=== PATIENT | female | born 1985 | race Caucasian/White ===

== ENCOUNTER 2016-06-16 17:21 | Inpatient (IN) | payer OTHER ==
[~2016-06-16] VITALS: Ht 152.4 cm; Wt 90.3 kg
[~2016-06-16 17:21] MED LIST: AMOXICILLIN875 M1 PO; AZITHROMYCIN500 M3 PO; CYCLOBENZAPRINE10 M1 PO; LEVOTHYROXINE100 MC1 PO; VITAFOL ULTRA1 EACH PO
[2016-06-17 01:32] LABS: ABSOLUTE BASOPHIL COUNT 0 /CUMM (0.0-0.2); ABSOLUTE EOSINOPHIL COUNT 0 /CUMM (0.0-0.7); ABSOLUTE GRANULOCYTE CT 9.3 /CUMM (1.4-6.5); ABSOLUTE LYMPH COUNT 2.6 /CUMM (1.2-3.4); ABSOLUTE MONOCYTE COUNT 0.6 /CUMM (0.10-0.60); BASOPHIL % 0.3 % (0.0-2.0); EOSINOPHIL % 0.3 % (0-5); GRANULOCYTE % 73.8 % (42.2-75.2); HEMATOCRIT 36.6 % (37-47); MEAN CORPUSCULAR HGB 28.9 PG (27.0-31.0); MEAN CORPUSCULAR HGB CONC 33.5 G/DL (33.0-37.0); MEAN CORPUSCULAR VOLUME 86.2 FL (81.0-99.0); MEAN PLATELET VOLUME 9.5 FL (7.4-10.4); PLATELET COUNT 197 /CUMM (130-400); RBC DISTRIBUTION WIDTH 13.7 % (11.5-14.5); RED BLOOD CELL CT 4.24 /CUMM (4.20-5.40); WHITE BLOOD CELL COUNT 12.6 /CUMM (4.8-10.8)
--- NOTE | 2016-06-17 02:01 | History & Physical ---
General Information and HPI MD Statement: I have seen and personally examined NAVEEN CUMMINS and documented this H&P. The patient is a 31 year old female at [40] weeks and [3] days gestation who presented with a chief complaint of [CTXS]. Source of Information: patient Exam Limitations: no limitations History of Present Illness: 31yo, 40 3/7wks, she was sent from office due to painful ctxs, she was observed at [facility], no cervical change for 3 hours, she was admitted for observation, she was given morphine and vistril for theraputic rest. she slept, then woke up with ctxs, she was 8cm dialted. request epidural. 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 : 4 Para: 1 Last Menstrual Period: 09/07/2015 Estimated Delivery Date: 06/13/2016 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: 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-contributory Past Pregnancies Past Pregnancies: Date of Delivery: 09/05/2013 Gestational Age: 39wks Weight: 6lb3oz Type of Delivery: vaginal Anesthesia: epidural Complications: none Medical History Blood Transfusion Hx: No Neurological: NONE EENT: NONE Cardiovascular: NONE Respiratory: NONE Gastrointestinal: NONE Hepatic: NONE Renal: NONE Musculoskeletal: NONE Psychiatric: NONE Endocrine: hypothyroidism Blood Disorders: NONE, LYME DISEASE 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 Home Who Do You Live With? spouse, child Primary Language: Setswana Smoking Status: Former Smoker ETOH Use: denies use Illicit Drug Use: denies illicit drug use Review of Systems Review of Systems Constitutional: Reports: no symptoms. EENTM: Reports: no symptoms. Cardiovascular: Reports: no symptoms. Respiratory: Reports: no symptoms. GI: Reports: no symptoms. Genitourinary: Reports: see HPI. Musculoskeletal: Reports: no symptoms. Skin: Reports: no symptoms. Neurological/Psychological: Reports: no symptoms. Hematologic/Endocrine: Reports: no symptoms. Immunologic/Allergic: Reports: no symptoms. All Other Systems: Reviewed and Negative Date of LMP: 09/07/15 Post Menopausal: No Exam & Diagnostic Data Obstetric Exam Wgt Gained During : 33LBS Pelvimetry: adequate Dilation (cm): 8 Effacement (%): 90 Station: -2 Membranes: SROM Fluid: clear Fundal Height (cm): 39 Multiple Gestation? No Contractions: q3-5 min #1 - FHR Baseline: 110 Category: 1 Estimated Weight: 7LB Presentation: VERTEX Patient for Induction? No Physical Exam: VSS genmeral: NAD abdomen: gravid, soft, nontender ext: DCT (-) Labs Blood Type & Rh: O positive Antibody Screen: negative Hct/Hgb & Platelets #1: 12.5/37.9%,[id number] Hct/Hgb & Platelets #2: 11.5/34.5%,[id number] Rubella: immune VDRL #1: negative VDRL #2: negative HbsAg: negative HIV #1: negative HIV #2 neagtive 1 Hr P Group B Strep: negative Initial Ultrasound: IUP at 10 wks Anatomy Ultrasound: normal Genetic Testing: declined Last 24 Hrs of Labs/Felician[place]: Laboratory Tests 06/17/16 0120: CBC w Diff NO MAN DIFF REQ, RBC 4.24, MCV 86.2, MCH 28.9, RDW 13.7, MPV 9.5, Gran % 73.8, Lymphocytes % 20.8, Monocytes % 4.8, Eosinophils % 0.3, Basophils % 0.3, Absolute Granulocytes 9.3 H, Absolute Lymphocytes 2.6, Absolute Monocytes 0.6, Absolute Eosinophils 0, Absolute Basophils 0, PUBS MCHC 33.5 06/16/16 1800: Urine Color YEL, Urine Clarity CLEAR, Urine pH 6.0, Ur Specific [place] 1.015, Urine Protein NEG, Urine Ketones NEG, Urine Nitrite NEG, Urine Bilirubin NEG, Urine Urobilinogen 0.2, Ur Leukocyte Esterase NEG, Ur Microscopic EXAM NOT REQUIRED, Urine Hemoglobin NEG, Urine Glucose NEG Assessment/Plan Assessment/Plan: 31yo, , 40 3/7wks , labor 1. admit pt, admission labs 2. pain management as needed 3. monitor closely As Ranked By This Provider Problem List: 1. Core Measures/Miscellaneous Venous Thromboembolism VTE Risk Factors: / VTE Contraindications: No Contraindications VTE Prophylaxis Ordered Inpt: Early Ambulation VTE Diagnosis: No Beta Manuel Is Beta Manuel a Home Med? No Antibiotics Is Patient on Antibiotics? No Attending MD Review Statement Attending Statement Attending MD Statement: examined this patient, discussed with family, discussed w/nursing
[2016-06-17 02:32] VITALS: BP 122/73
--- NOTE | 2016-06-17 06:40 | Labor & Delivery Summary ---
Delivery Summary Vaginal Delivery: Vaginal: spontaneous Episiotomy/Lacerations: Type: 1ST DEGREE Repair: 3-0 VICRYL Anesthesia: EPIDURAL Placenta: Placenta: spontanteous, normal, 3 vessel, nuchal cord (x_) (X1) Anesthesia: EPIDURAL Baby's Weight: PENDING Apgars - 1 Min: 8 Apgars - 5 Min: 9
[2016-06-18 08:49] LABS: ABSOLUTE BASOPHIL COUNT 0 /CUMM (0.0-0.2); ABSOLUTE EOSINOPHIL COUNT 0.1 /CUMM (0.0-0.7); ABSOLUTE GRANULOCYTE CT 6.1 /CUMM (1.4-6.5); ABSOLUTE LYMPH COUNT 2.7 /CUMM (1.2-3.4); ABSOLUTE MONOCYTE COUNT 0.4 /CUMM (0.10-0.60); BASOPHIL % 0.3 % (0.0-2.0); EOSINOPHIL % 0.7 % (0-5); GRANULOCYTE % 66.2 % (42.2-75.2); HEMATOCRIT 32.4 % (37-47); MEAN CORPUSCULAR HGB 28.7 PG (27.0-31.0); MEAN CORPUSCULAR VOLUME 87.2 FL (81.0-99.0); PLATELET COUNT 184 /CUMM (130-400); RBC DISTRIBUTION WIDTH 14.3 % (11.5-14.5); RED BLOOD CELL CT 3.72 /CUMM (4.20-5.40); WHITE BLOOD CELL COUNT 9.3 /CUMM (4.8-10.8)
--- NOTE | 2016-06-18 13:51 | PN- OBGYN ---
Surgical Brief Attending Note Brief Attending Note: S: Patient is very pleased with her recent vaginal delivery. Her baby girl is doing well. Patient is breast-feeding without difficulty. She was able to breast-feed her first child for greater than 1 year. 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 Pulse ox 99% room air Abdomen is soft benign no hepatosplenomegaly nontender nondistended Uterus is firm midline 2 fingerbreadths below the umbilicus nontender. Perineum is intact no erythema or drainage or swelling. Average lochia Extremities nontender no swelling negative Homans bilaterally CBC hemoglobin 10.7 hematocrit 32 platelet count normal Stable day #1 routine care. Patient will be ambulating today in the hallway. She is currently doing well with by mouth Motrin. If patient remains afebrile and without clinical signs of any difficulty will likely go home tomorrow Laura Roe MD
[2016-06-19] MEDS ORDERED: IBUPROFEN800 M1 PO (09:36)
[2016-06-19] MEDS ORDERED: LASIX20 M1 PO (10:12)
--- NOTE | 2016-06-19 10:56 | PN- OBGYN ---
Surgical Brief Attending Note Brief Attending Note: No complaints. does note edema of hands and feet. "hands feel numb". Doing well. Ambulating, voiding, tolerating pain and po. +nursing. small to moderate lochia. Denies SOB/CP VSSAF FF@U Ext: no calf tenderness, 3+pedal edema Laboratory Tests 06/18/16 0700: CBC w Diff NO MAN DIFF REQ, RBC 3.72 L, MCV 87.2, MCH 28.7, RDW 14.3, MPV 10.0, Gran % 66.2, Lymphocytes % 29.0, Monocytes % 3.8, Eosinophils % 0.7, Basophils % 0.3, Absolute Granulocytes 6.1, Absolute Lymphocytes 2.7, Absolute Monocytes 0.4 , Absolute Eosinophils 0.1, Absolute Basophils 0, PUBS MCHC 33.0 06/17/16 0120: CBC w Diff NO MAN DIFF REQ, RBC 4.24, MCV 86.2, MCH 28.9, RDW 13.7, MPV 9.5, Gran % 73.8, Lymphocytes % 20.8, Monocytes % 4.8, Eosinophils % 0.3, Basophils % 0.3, Absolute Granulocytes 9.3 H, Absolute Lymphocytes 2.6, Absolute Monocytes 0.6, Absolute Eosinophils 0, Absolute Basophils 0, PUBS MCHC 33.5 06/16/16 1800: Urine Color YEL, Urine Clarity CLEAR, Urine pH 6.0, Ur Specific [place] 1.015, Urine Protein NEG, Urine Ketones NEG, Urine Nitrite NEG, Urine Bilirubin NEG, Urine Urobilinogen 0.2, Ur Leukocyte Esterase NEG, Ur Microscopic EXAM NOT REQUIRED, Urine Hemoglobin NEG, Urine Glucose NEG a/p PPD2. Doing well. Routine pp care. Discharge today . precautions advised. Pedal edema noted. Lasix advised however pt is nursing and with jaundice issues. Will need to either supplement if affecting milk supply or can await to take it until f/u visit Thursday and then take if still advied.
== END 2016-06-19 11:30 | DRG 775 ==
LOC: CBCO 17:21 → GNO 20:00
PROVIDERS: ADMIT Obstetrics & Gynecology
PROC: 0HQ9XZZ Repair Perineum Skin, External Approach (ICD-10-PCS; principal; 2016-06-17)
PROC: 10E0XZZ Delivery of Products of Conception, External Approach (ICD-10-PCS; principal; 2016-06-17)
DX: O69.81X0 Labor and delivery complicated by cord around neck, without compression, not applicable or unspecified (principal); O70.0 First degree perineal laceration during delivery; Z3A.40 40 weeks gestation of pregnancy; Z37.0 Single live birth
CPT/HCPCS: 6050; GNOS; 81003; G0378; G0463; J2270; J2310; J7120